=== PATIENT | female | born 1985 | race Caucasian/White ===

== ENCOUNTER 2021-04-06 16:20 | Emergency (ER) | payer BC ==
[~2021-04-06] VITALS: Ht 162.6 cm; Wt 72.6 kg
[2021-04-06] MEDS ORDERED: SINGULAIR 10 MG10 M1 PO (16:35)
[2021-04-06] MEDS ORDERED: PROAIR HFA8.5 GM INH (16:35)
[2021-04-06] MEDS ORDERED: SYMBICORT160 MCG/4. INH (16:35)
[2021-04-06] MEDS ORDERED: CEPHALEXIN500 MG PO (17:41)
[2021-04-06] MEDS ORDERED: HYDROCODON-ACE1 EAC7 PO (18:08)
[2021-04-06 18:50] VITALS: BP 132/54
== END 2021-04-06 18:51 | disposition home or self-care (01) ==
LOC: M.ERS 16:20
DX: S92.532A Displaced fracture of distal phalanx of left lesser toe(s), initial encounter for closed fracture (principal); S91.115A Laceration without foreign body of left lesser toe(s) without damage to nail, initial encounter; J45.909 Unspecified asthma, uncomplicated; Z79.899 Other long term (current) drug therapy; W19.XXXA Unspecified fall, initial encounter; Y93.89 Activity, other specified; Y92.89 Other specified places as the place of occurrence of the external cause; Y99.8 Other external cause status